=== PATIENT | male | born 1965 | race Caucasian/White ===

== ENCOUNTER → 2020-01-05 13:20 | Outpatient (BNVA) | payer BC, SELFPAY | PROVIDERS: PCP Family Medicine; Visit Provider Student in an Organized Health Care Education/Training Program | DX: Z76.89 Persons encountering health services in other specified circumstances (principal) ==

== ENCOUNTER 2020-05-11 09:00 | Outpatient (REF) | payer BC, SELFPAY ==
[2020-05-11 10:02] LABS: Basophils Percent Auto 0.5 % (0-2); Eosinophils Absolute Auto 0.1 X10*3/uL (0.0-0.4); Eosinophils Percent Auto 2.4 % (0-4); Hematocrit 45.3 % (42-52); Hemoglobin 14.9 g/dl (14.0-18.0); Imm Gran Abs Auto 0.05 X10*3/uL (0.00-0.03); Imm Gran Pct Auto 1.3 % (0.0-0.4); Lymphocytes Absolute Auto 0.7 X10*3/uL (1.2-4.9); Lymphocytes Percent Auto 17.7 % (20-40); MANUAL DIFF FLAG SCAN; Mean Corpuscular HGB Conc 32.9 g/dl (31.0-36.0); Mean Corpuscular Hemoglobin 29.7 pg (27.0-33.0); Mean Corpuscular Volume 90.2 fL (80-98); Mean Platelet Volume 9.6 fL (9.4-12.4); Monocytes Absolute Auto 0.6 X10*3/uL (0.1-1.2); Monocytes Percent Auto 16.7 % (2-11); Neutrophils Absolute Auto 2.3 X10*3/uL (2.0-8.3); Neutrophils Percent Auto 61.4 % (45-73); Platelet Count 219 X10*3/uL (160-400); Red Blood Count 5.02 X10*6/uL (4.60-5.80); Red Cell Distribution Width 15.1 % (11.0-16.0); SCAN SMEAR FLAG 1; White Blood Count 3.8 X10*3/uL (4.8-10.8)
[2020-05-11 10:31] LABS: Alanine Aminotransferase 14 U/L (0-40); Albumin Level 4.1 g/dL (3.5-5.0); Alkaline Phosphatase 80 U/L (39-117); Anion Gap 10 (12-20); Aspartate Amino Transferase 17 U/L (5-37); Bilirubin Total 1.4 mg/dL (0.0-1.0); Blood Urea Nitrogen 20 mg/dL (9-16); C Reactive Protein 0.21 mg/dL (< or = 0.50); Calcium 8.8 mg/dL (8.4-10.2); Carbon Dioxide 30 mmol/L (22-29); Chloride 103 mmol/L (96-108); Estimated Glomerular Filt Rate > 60; Glucose Random 248 mg/dL (60-115); Potassium 4.1 mmol/L (3.3-5.1); Sodium 139 mmol/L (135-145); Total Protein 6.1 g/dL (6.5-8.0)
[2020-05-11 10:52] LABS: Erythrocyte Sedimentation Rate 2 MM/HR (0-15)
[2020-05-11 11:41] LABS: SLIDE REVIEW VERIFIED
== END 2020-05-11 09:01 | disposition home or self-care (01) ==
LOC: HO.LAB 09:00
PROVIDERS: PCP Family Medicine; Visit Provider Student in an Organized Health Care Education/Training Program
DX: L40.50 Arthropathic psoriasis, unspecified (principal)
CPT/HCPCS: 36415; 80053; 85025; 85652; 86140

== ENCOUNTER → 2020-05-24 15:55 | Outpatient (BNVA) | payer BC, SELFPAY | PROVIDERS: PCP Family Medicine; Visit Provider Student in an Organized Health Care Education/Training Program | DX: L40.50 Arthropathic psoriasis, unspecified (principal) ==

== ENCOUNTER 2020-10-21 17:07 | Outpatient (REF) | payer BC, SELFPAY ==
[2020-10-21 17:13] LABS: MANUAL DIFF FLAG NO
[2020-10-21 17:44] LABS: Basophils Percent Auto 0.2 % (0-2); Eosinophils Percent Auto 0.7 % (0-4); Hematocrit 45.1 % (42-52); Hemoglobin 14.9 g/dl (14.0-18.0); Imm Gran Abs Auto 0.01 X10*3/uL (0.00-0.03); Imm Gran Pct Auto 0.2 % (0.0-0.4); Lymphocytes Absolute Auto 0.6 X10*3/uL (1.2-4.9); Lymphocytes Percent Auto 15.3 % (20-40); Mean Corpuscular Hemoglobin 29.9 pg (27.0-33.0); Mean Corpuscular Volume 90.4 fL (80-98); Mean Platelet Volume 9.6 fL (9.4-12.4); Monocytes Absolute Auto 0.7 X10*3/uL (0.1-1.2); Monocytes Percent Auto 17.8 % (2-11); Neutrophils Absolute Auto 2.7 X10*3/uL (2.0-8.3); Neutrophils Percent Auto 65.8 % (45-73); Platelet Count 230 X10*3/uL (160-400); Red Blood Count 4.99 X10*6/uL (4.60-5.80); Red Cell Distribution Width 14.6 % (11.0-16.0); White Blood Count 4.1 X10*3/uL (4.8-10.8)
[2020-10-21 18:01] LABS: Alanine Aminotransferase 18 U/L (0-40); Albumin Level 4.5 g/dL (3.5-5.0); Alkaline Phosphatase 85 U/L (39-117); Anion Gap 18 (12-20); Aspartate Amino Transferase 18 U/L (5-37); Bilirubin Total 1.2 mg/dL (0.0-1.0); Blood Urea Nitrogen 13 mg/dL (9-16); C Reactive Protein 0.38 mg/dL (< or = 0.50); Calcium 9.3 mg/dL (8.4-10.2); Carbon Dioxide 24 mmol/L (22-29); Chloride 105 mmol/L (96-108); Estimated Glomerular Filt Rate > 60; Glucose Random 147 mg/dL (60-115); Potassium 3.9 mmol/L (3.3-5.1); Sodium 143 mmol/L (135-145); Total Protein 6.8 g/dL (6.5-8.0)
[2020-10-21 18:41] LABS: Erythrocyte Sedimentation Rate 5 MM/HR (0-15)
== END 2020-10-21 17:08 | disposition home or self-care (01) ==
LOC: HO.LAB 17:07
PROVIDERS: PCP Family Medicine; Visit Provider Student in an Organized Health Care Education/Training Program
DX: L40.50 Arthropathic psoriasis, unspecified (principal)
CPT/HCPCS: 36415; 80053; 85025; 85652; 86140

== ENCOUNTER → 2020-10-25 14:59 | Outpatient (BNVA) | payer BC, SELFPAY | PROVIDERS: PCP Family Medicine; Visit Provider Student in an Organized Health Care Education/Training Program ==

== ENCOUNTER 2021-02-18 13:36 | Outpatient (REF) | payer BC, SELFPAY ==
[2021-02-18 13:49] LABS: MANUAL DIFF FLAG NO
[2021-02-18 14:38] LABS: Basophils Percent Auto 0.7 % (0-2); Hematocrit 44.7 % (42.0-52.0); Hemoglobin 14.9 g/dl (14.0-18.0); Imm Gran Abs Auto 0.03 X10*3/uL (0.00-0.03); Imm Gran Pct Auto 0.7 % (0.0-0.4); Lymphocytes Absolute Auto 0.8 X10*3/uL (1.2-4.9); Lymphocytes Percent Auto 19.1 % (20-40); Mean Corpuscular HGB Conc 33.3 g/dl (31.0-36.0); Mean Corpuscular Hemoglobin 30.3 pg (27.0-33.0); Mean Corpuscular Volume 90.9 fL (80.0-98.0); Mean Platelet Volume 9.6 fL (9.4-12.4); Monocytes Absolute Auto 0.6 X10*3/uL (0.1-1.2); Monocytes Percent Auto 13.5 % (2-11); Neutrophils Absolute Auto 2.7 x10*3/uL (2.0-8.3); Platelet Count 233 X10*3/uL (160-400); Red Blood Count 4.92 X10*6/uL (4.60-5.80); Red Cell Distribution Width 14.6 % (11.0-16.0); White Blood Count 4.1 X10*3/uL (4.8-10.8)
[2021-02-18 14:59] LABS: Alanine Aminotransferase 19 U/L (0-40); Albumin Level 4.3 g/dL (3.5-5.0); Alkaline Phosphatase 91 U/L (39-117); Anion Gap 12 (12-20); Aspartate Amino Transferase 18 U/L (5-37); Bilirubin Total 1.2 mg/dL (0.0-1.0); Blood Urea Nitrogen 16 mg/dL (9-16); C Reactive Protein 0.19 mg/dL (< or = 0.50); Calcium 8.8 mg/dL (8.4-10.2); Carbon Dioxide 26 mmol/L (22-29); Chloride 106 mmol/L (96-108); Estimated Glomerular Filt Rate > 60; Glucose Random 250 mg/dL (60-115); Potassium 4.1 mmol/L (3.3-5.1); Sodium 140 mmol/L (135-145); Total Protein 6.5 g/dL (6.5-8.0)
[2021-02-18 15:44] LABS: Erythrocyte Sedimentation Rate 2 MM/HR (0-15)
== END 2021-02-18 13:37 | disposition home or self-care (01) ==
LOC: HO.LAB 13:36
PROVIDERS: PCP Family Medicine; Visit Provider Nurse Practitioner Family
DX: L40.50 Arthropathic psoriasis, unspecified (principal)
CPT/HCPCS: 36415; 80053; 85025; 85652; 86140

== ENCOUNTER → 2021-04-11 14:08 | Outpatient (BNVA) | payer BC, SELFPAY | PROVIDERS: PCP Family Medicine; Visit Provider Nurse Practitioner Family ==

== ENCOUNTER 2021-07-25 13:31 | Outpatient (REF) | payer BC, SELFPAY ==
[2021-07-25 13:56] LABS: MANUAL DIFF FLAG NO
[2021-07-25 15:16] LABS: Basophils Percent Auto 0.7 % (0-2); Eosinophils Absolute Auto 0.1 X10*3/uL (0.0-0.4); Hemoglobin 14.9 g/dl (14.0-18.0); Imm Gran Abs Auto 0.04 X10*3/uL (0.00-0.03); Lymphocytes Absolute Auto 0.6 X10*3/uL (1.2-4.9); Lymphocytes Percent Auto 15.5 % (20-40); Mean Corpuscular HGB Conc 33.1 g/dl (31.0-36.0); Mean Corpuscular Hemoglobin 29.8 pg (27.0-33.0); Mean Platelet Volume 9.8 fL (9.4-12.4); Monocytes Absolute Auto 0.6 X10*3/uL (0.1-1.2); Neutrophils Absolute Auto 2.7 x10*3/uL (2.0-8.3); Neutrophils Percent Auto 66.8 % (45-73); Platelet Count 229 X10*3/uL (160-400); Red Cell Distribution Width 14.6 % (11.0-16.0); White Blood Count 4.1 X10*3/uL (4.8-10.8)
[2021-07-25 15:33] LABS: Alanine Aminotransferase 18 U/L (0-40); Albumin Level 4.2 g/dL (3.5-5.0); Alkaline Phosphatase 86 U/L (39-117); Anion Gap 13 (12-20); Aspartate Amino Transferase 20 U/L (5-37); Bilirubin Total 1.3 mg/dL (0.0-1.0); Blood Urea Nitrogen 22 mg/dL (9-16); C Reactive Protein 0.17 mg/dL (< or = 0.50); Calcium 9.4 mg/dL (8.4-10.2); Carbon Dioxide 27 mmol/L (22-29); Chloride 102 mmol/L (96-108); Estimated Glomerular Filt Rate > 60; Glucose Random 205 mg/dL (60-115); Potassium 3.8 mmol/L (3.3-5.1); Sodium 138 mmol/L (135-145); Total Protein 6.4 g/dL (6.5-8.0)
[2021-07-25 15:56] LABS: Erythrocyte Sedimentation Rate 2 MM/HR (0-15)
== END 2021-07-25 13:32 | disposition home or self-care (01) ==
LOC: HO.LAB 13:31
PROVIDERS: PCP Family Medicine; Visit Provider Nurse Practitioner Family
DX: L40.50 Arthropathic psoriasis, unspecified (principal)
CPT/HCPCS: 36415; 80053; 85025; 85652; 86140

== ENCOUNTER 2021-10-25 08:18 | Outpatient (REF) | payer BC, SELFPAY ==
[2021-10-25 08:32] LABS: MANUAL DIFF FLAG NO
[2021-10-25 08:35] LABS: Basophils Percent Auto 0.6 % (0-2); Eosinophils Absolute Auto 0.1 X10*3/uL (0.0-0.4); Eosinophils Percent Auto 1.8 % (0-4); Hematocrit 43.8 % (42.0-52.0); Hemoglobin 14.5 g/dl (14.0-18.0); Imm Gran Abs Auto 0.07 X10*3/uL (0.00-0.03); Imm Gran Pct Auto 1.1 % (0.0-0.4); Lymphocytes Absolute Auto 0.7 X10*3/uL (1.2-4.9); Lymphocytes Percent Auto 11.6 % (20-40); Mean Corpuscular HGB Conc 33.1 g/dl (31.0-36.0); Mean Corpuscular Hemoglobin 29.5 pg (27.0-33.0); Mean Corpuscular Volume 89.2 fL (80.0-98.0); Monocytes Absolute Auto 0.9 X10*3/uL (0.1-1.2); Neutrophils Absolute Auto 4.4 x10*3/uL (2.0-8.3); Neutrophils Percent Auto 70.9 % (45-73); Platelet Count 270 X10*3/uL (160-400); Red Blood Count 4.91 X10*6/uL (4.60-5.80); Red Cell Distribution Width 14.6 % (11.0-16.0); White Blood Count 6.2 X10*3/uL (4.8-10.8)
[2021-10-25 09:08] LABS: Alanine Aminotransferase 11 U/L (0-40); Albumin Level 3.9 g/dL (3.5-5.0); Alkaline Phosphatase 86 U/L (39-117); Anion Gap 15 (12-20); Aspartate Amino Transferase 15 U/L (5-37); Bilirubin Total 0.9 mg/dL (0.0-1.0); Blood Urea Nitrogen 19 mg/dL (9-16); C Reactive Protein 0.27 mg/dL (< or = 0.50); Calcium 8.5 mg/dL (8.4-10.2); Carbon Dioxide 25 mmol/L (22-29); Chloride 104 mmol/L (96-108); Estimated Glomerular Filt Rate > 60; Glucose Random 151 mg/dL (60-115); Potassium 4.3 mmol/L (3.3-5.1); Sodium 140 mmol/L (135-145); Total Protein 6.3 g/dL (6.5-8.0)
[2021-10-25 09:16] LABS: Erythrocyte Sedimentation Rate 9 MM/HR (0-15)
== END 2021-10-25 08:19 | disposition home or self-care (01) ==
LOC: HO.LAB 08:18
PROVIDERS: PCP Family Medicine; Visit Provider Nurse Practitioner Family
DX: L40.50 Arthropathic psoriasis, unspecified (principal)
CPT/HCPCS: 36415; 80053; 85025; 85652; 86140

== ENCOUNTER 2022-01-16 15:15 | Outpatient (REF) | payer BC, SELFPAY ==
[2022-01-16 15:35] LABS: MANUAL DIFF FLAG NO
[2022-01-16 16:00] LABS: Basophils Percent Auto 0.9 % (0-2); Eosinophils Absolute Auto 0.1 X10*3/uL (0.0-0.4); Eosinophils Percent Auto 1.6 % (0-4); Hematocrit 44.9 % (42.0-52.0); Hemoglobin 15.2 g/dl (14.0-18.0); Imm Gran Abs Auto 0.04 X10*3/uL (0.00-0.03); Imm Gran Pct Auto 0.9 % (0.0-0.4); Lymphocytes Absolute Auto 0.9 X10*3/uL (1.2-4.9); Lymphocytes Percent Auto 19.7 % (20-40); Mean Corpuscular HGB Conc 33.9 g/dl (31.0-36.0); Mean Corpuscular Volume 88.7 fL (80.0-98.0); Mean Platelet Volume 9.4 fL (9.4-12.4); Monocytes Absolute Auto 0.7 X10*3/uL (0.1-1.2); Monocytes Percent Auto 16.7 % (2-11); Neutrophils Absolute Auto 2.6 x10*3/uL (2.0-8.3); Neutrophils Percent Auto 60.2 % (45-73); Platelet Count 230 X10*3/uL (160-400); Red Blood Count 5.06 X10*6/uL (4.60-5.80); Red Cell Distribution Width 15.2 % (11.0-16.0); White Blood Count 4.3 X10*3/uL (4.8-10.8)
[2022-01-16 16:25] LABS: Alanine Aminotransferase 16 U/L (0-40); Albumin Level 4.5 g/dL (3.5-5.0); Alkaline Phosphatase 87 U/L (39-117); Anion Gap 16 (12-20); Aspartate Amino Transferase 17 U/L (5-37); Bilirubin Total 1.2 mg/dL (0.0-1.0); Blood Urea Nitrogen 18 mg/dL (9-16); C Reactive Protein 0.22 mg/dL (< or = 0.50); Calcium 9.3 mg/dL (8.4-10.2); Carbon Dioxide 25 mmol/L (22-29); Chloride 103 mmol/L (96-108); Estimated Glomerular Filt Rate > 60; Glucose Random 118 mg/dL (60-115); Sodium 140 mmol/L (135-145); Total Protein 6.8 g/dL (6.5-8.0)
[2022-01-16 18:03] LABS: Erythrocyte Sedimentation Rate 2 MM/HR (0-15)
== END 2022-01-16 15:16 | disposition home or self-care (01) ==
LOC: HO.LAB 15:15
PROVIDERS: PCP Family Medicine; Visit Provider Nurse Practitioner Family
DX: L40.50 Arthropathic psoriasis, unspecified (principal)
CPT/HCPCS: 36415; 80053; 85025; 85652; 86140

== ENCOUNTER → 2022-02-13 14:23 | Outpatient (BNVA) | payer OTHER, SELFPAY | PROVIDERS: PCP Family Medicine; Visit Provider Surgery | DX: L72.3 Sebaceous cyst (principal); L40.50 Arthropathic psoriasis, unspecified; E11.9 Type 2 diabetes mellitus without complications; Z79.899 Other long term (current) drug therapy | CPT/HCPCS: 11401 ==

== ENCOUNTER 2022-04-10 12:36 | Outpatient (REF) | payer OTHER, SELFPAY ==
[2022-04-10 12:45] LABS: MANUAL DIFF FLAG NO
[2022-04-10 12:53] LABS: Basophils Absolute Auto 0.1 X10*3/uL (0.0-0.2); Eosinophils Absolute Auto 0.1 X10*3/uL (0.0-0.4); Imm Gran Abs Auto 0.05 X10*3/uL (0.00-0.03); Lymphocytes Absolute Auto 0.7 X10*3/uL (1.2-4.9); Lymphocytes Percent Auto 13.8 % (20-40); Mean Corpuscular HGB Conc 33.3 g/dl (31.0-36.0); Mean Corpuscular Hemoglobin 29.8 pg (27.0-33.0); Mean Corpuscular Volume 89.3 fL (80.0-98.0); Mean Platelet Volume 9.1 fL (9.4-12.4); Monocytes Absolute Auto 0.7 X10*3/uL (0.1-1.2); Monocytes Percent Auto 13.2 % (2-11); Neutrophils Absolute Auto 3.4 x10*3/uL (2.0-8.3); Platelet Count 250 X10*3/uL (160-400); Red Blood Count 5.04 X10*6/uL (4.60-5.80); Red Cell Distribution Width 14.6 % (11.0-16.0); White Blood Count 4.9 X10*3/uL (4.8-10.8)
[2022-04-10 13:17] LABS: Alanine Aminotransferase 13 U/L (0-40); Aspartate Amino Transferase 14 U/L (5-37); C Reactive Protein 0.25 mg/dL (< or = 0.50); Estimated Glomerular Filt Rate > 60
[2022-04-10 13:30] LABS: Erythrocyte Sedimentation Rate 2 MM/HR (0-15)
== END 2022-04-10 12:37 | disposition home or self-care (01) ==
LOC: HO.LAB 12:36
PROVIDERS: PCP Family Medicine; Visit Provider Nurse Practitioner Family
DX: L40.50 Arthropathic psoriasis, unspecified (principal); Z79.899 Other long term (current) drug therapy
CPT/HCPCS: 36415; 82565; 84450; 84460; 85025; 85652; 86140

== ENCOUNTER 2022-06-19 08:25 | Outpatient (REF) | payer OTHER, SELFPAY ==
[2022-06-19 08:45] LABS: MANUAL DIFF FLAG NO
[2022-06-19 09:09] LABS: Basophils Absolute Auto 0.1 X10*3/uL (0.0-0.2); Basophils Percent Auto 1.5 % (0-2); Eosinophils Absolute Auto 0.1 X10*3/uL (0.0-0.4); Hematocrit 47.6 % (42.0-52.0); Hemoglobin 15.7 g/dl (14.0-18.0); Imm Gran Abs Auto 0.04 X10*3/uL (0.00-0.03); Lymphocytes Absolute Auto 0.6 X10*3/uL (1.2-4.9); Lymphocytes Percent Auto 15.5 % (20-40); Mean Corpuscular Hemoglobin 29.6 pg (27.0-33.0); Mean Corpuscular Volume 89.6 fL (80.0-98.0); Mean Platelet Volume 9.5 fL (9.4-12.4); Monocytes Absolute Auto 0.6 X10*3/uL (0.1-1.2); Monocytes Percent Auto 14.3 % (2-11); Neutrophils Absolute Auto 2.7 x10*3/uL (2.0-8.3); Neutrophils Percent Auto 65.7 % (45-73); Platelet Count 218 X10*3/uL (160-400); Red Blood Count 5.31 X10*6/uL (4.60-5.80); Red Cell Distribution Width 14.7 % (11.0-16.0); White Blood Count 4.1 X10*3/uL (4.8-10.8)
[2022-06-19 09:34] LABS: Alanine Aminotransferase 15 U/L (0-40); Albumin Level 4.1 g/dL (3.5-5.0); Alkaline Phosphatase 87 U/L (39-117); Anion Gap 14 (12-20); Aspartate Amino Transferase 13 U/L (5-37); Bilirubin Total 1.6 mg/dL (0.0-1.0); Blood Urea Nitrogen 20 mg/dL (9-16); C Reactive Protein 0.13 mg/dL (< or = 0.50); Carbon Dioxide 26 mmol/L (22-29); Chloride 104 mmol/L (96-108); Estimated Glomerular Filt Rate > 60; Glucose Random 212 mg/dL (60-115); Potassium 4.3 mmol/L (3.3-5.1); Sodium 140 mmol/L (135-145); Total Protein 6.2 g/dL (6.5-8.0)
[2022-06-19 09:50] LABS: Erythrocyte Sedimentation Rate 2 MM/HR (0-15)
== END 2022-06-19 08:26 | disposition home or self-care (01) ==
LOC: HO.LAB 08:25
PROVIDERS: Visit Provider Nurse Practitioner Family
DX: L40.50 Arthropathic psoriasis, unspecified (principal)
CPT/HCPCS: 36415; 80053; 85025; 85652; 86140

== ENCOUNTER → 2022-06-26 08:58 | Outpatient (BNVA) | payer OTHER, SELFPAY | PROVIDERS: PCP Family Medicine; Visit Provider Nurse Practitioner Family | DX: Z13.89 Encounter for screening for other disorder (principal) ==

== ENCOUNTER 2022-09-18 11:27 | Outpatient (REF) | payer OTHER, SELFPAY ==
[2022-09-18 11:42] LABS: MANUAL DIFF FLAG NO
[2022-09-18 12:15] LABS: Basophils Percent Auto 0.8 % (0-2); Eosinophils Percent Auto 0.6 % (0-4); Hematocrit 45.1 % (42.0-52.0); Hemoglobin 14.8 g/dl (14.0-18.0); Imm Gran Abs Auto 0.05 X10*3/uL (0.00-0.03); Lymphocytes Absolute Auto 0.7 X10*3/uL (1.2-4.9); Lymphocytes Percent Auto 12.9 % (20-40); Mean Corpuscular HGB Conc 32.8 g/dl (31.0-36.0); Mean Corpuscular Hemoglobin 29.5 pg (27.0-33.0); Mean Corpuscular Volume 89.8 fL (80.0-98.0); Mean Platelet Volume 9.4 fL (9.4-12.4); Monocytes Absolute Auto 0.6 X10*3/uL (0.1-1.2); Monocytes Percent Auto 12.5 % (2-11); Neutrophils Absolute Auto 3.7 x10*3/uL (2.0-8.3); Neutrophils Percent Auto 72.2 % (45-73); Platelet Count 197 X10*3/uL (160-400); Red Blood Count 5.02 X10*6/uL (4.60-5.80); Red Cell Distribution Width 14.6 % (11.0-16.0); White Blood Count 5.1 X10*3/uL (4.8-10.8)
[2022-09-18 13:00] LABS: Erythrocyte Sedimentation Rate 2 MM/HR (0-15)
[2022-09-18 13:11] LABS: Alanine Aminotransferase 13 U/L (0-40); Alkaline Phosphatase 92 U/L (39-117); Anion Gap 11 (12-20); Aspartate Amino Transferase 16 U/L (5-37); Bilirubin Total 1.5 mg/dL (0.0-1.0); Blood Urea Nitrogen 15 mg/dL (9-16); C Reactive Protein 0.24 mg/dL (< or = 0.50); Calcium 9.3 mg/dL (8.4-10.2); Carbon Dioxide 26 mmol/L (22-29); Chloride 105 mmol/L (96-108); Estimated Glomerular Filt Rate > 60; Glucose Random 237 mg/dL (60-115); Potassium 3.3 mmol/L (3.3-5.1); Sodium 139 mmol/L (135-145); Total Protein 6.5 g/dL (6.5-8.0)
== END 2022-09-18 11:28 | disposition home or self-care (01) ==
LOC: HO.LAB 11:27
PROVIDERS: PCP Family Medicine; Visit Provider Nurse Practitioner Family
DX: L40.50 Arthropathic psoriasis, unspecified (principal)
CPT/HCPCS: 36415; 80053; 85025; 85652; 86140

== ENCOUNTER 2022-10-16 13:55 | Outpatient (AMB) | payer OTHER, SELFPAY ==
[2022-10-16 13:57] VITALS: BP 122/66; PULSE 67; TEMP 36.6; O2SAT 97; BMI 28.2
--- NOTE | 2022-10-16 13:57 | MHC.OFFVIS ---
Intake Vital Signs 10/16/22 13:57 Height 5 ft 10 in Weight 196 lb 13.965 oz BMI 28.2 BP 122/66 Blood Pressure Location Rt brachial Position Sitting Pulse 67 Pulse Source Pulse Oximeter Temp 97.8 F Temp Source Skin Pulse Oximetry (%) 97 Intake Visit Reasons: psoriatic arthritis/LVM ins inactive Intake Note: Pt seen today for PsA follow up. Inner Tube Inserter Required: No Accompanied by: Self / Same As Patient Allergies No Known Allergies Allergy (Verified 10/16/22 13:59) Medication List - Last Reconciled 10/16/22 by Randy Hunt MD aspirin 81 mg PO DAILY clobetasol 0.05% 1 appl topical BID 2 weeks dapagliflozin propanediol (Farxiga) 10 mg PO QAM dulaglutide (Trulicity) 1.5 mg subcut QWEEK folic acid 1 mg PO DAILY methotrexate sodium 10 mg (4 x 2.5 mg) PO QWEEK pioglitazone-metformin 15-850 mg (Actoplus MET) 1 tab PO BID potassium citrate ER 10 mEq PO TID sildenafil 100 mg PO DAILY simvastatin 20 mg PO BEDTIME tamsulosin 0.4 mg PO BEDTIME HPI HPI Comments History of Present Illness Details 57yoM presents for follow-up of psoriatic arthritis. Last seen by Bessy Webb 06/18 On MTX 4 tabs weekly and folic acid daily. Tolerating medications. Patient states that his psoriasis and psoriatic arthritis is well controlled. Gets intermittent psoriatic patches, He manages symptoms with [id number] topicals with good effect. Patient has a history of vertebral fracture after getting injured on a forklift. He states he was seated and the fork truck slammed on the ground after the load shifted off the fork. He reports a vertebral fracture was found on imaging sometime later and had healed by that point. He states it has been suggested that he start treatment for osteoporosis, but he would like to learn some more information regarding this. He reports he follows with Urology for calcium kidney stones. He states he had 4 episodes of stones 3 which required intervention. Last episode was 15 years ago Denies history of alcohol or smoking. He is not aware of any testosterone deficiency. Previously followed with Endocrine for diabetes, he states he was referred back to his PCP approximately 2 months ago as his blood sugars have been well controlled. He reports osteoporosis was newly discovered on DEXA December 2021. He follows with Urology for kidney stones. [facility] Medical History Diabetes Psoriatic arthropathy Surgical History History of orchiectomy Hx of cystoscopy Family History Father Lung cancer Mother Lung cancer Social History Household Members: Spouse Housing: House Are you a primary pediatric acute care unit nurse to a significant other at home: No Do you presently have visiting nurse or other home services: No 75 years or older and lives alone: No Alcohol intake: never Patient Tobacco Use Status: Never used Tobacco Review of Systems Musc Denies arthralgias, Denies joint swelling and Denies stiffness Skin/Breast Reports rash Physical Exam Vital Signs: Last Vital Signs Temp 97.8 F 10/16/22 13:57 Pulse 67 10/16/22 13:57 BP 122/66 10/16/22 13:57 Pulse Ox 97 10/16/22 13:57 BMI result Body Mass Index 28.2 Const General: cooperative, healthy appearing and comfortable Nutritional Appearance: overweight Orientation/consciousness: patient oriented x3 Limitations: no limitations HEENT Head: Yes normocephalic and Yes atraumatic Mouth: moist mucous membranes Resp Effort & Inspection: normal respiratory effort and able to speak in complete sentences Cardio Rate: regular rate Rhythm: regular rhythm Skin General skin exam: no rashes or lesions noted Neuro General: patient oriented x3 Extrem Other: No active synovitis Assessment & Plan Assessment & Plan (1) Psoriatic arthritis: Comment: Methotrexate: 2011-present Code(s): L40.50 - Arthropathic psoriasis, unspecified Plan: 57-year-old male with psoriatic arthritis returns for follow-up. His psoriatic arthritis has been well controlled for years with current management Continue methotrexate 10 mg once weekly and folic acid daily. Labs before next visit in 6 months (2) Osteoporosis with fracture: Comment: Prior fracture history vertebral fracture. DEXA report [facility] 01/02/2022 AP spine T-score -2.8 osteoporosis Femoral neck left T-score -3.0 osteoporosis Total hip left T-score -2.1 osteopenia Code(s): M80.80XA - Other osteoporosis with current pathological fracture, unspecified site, initial encounter for fracture Plan: Given osteoporosis a in a male, history of calcium kidney stones, I referred patient to undergo allergy for evaluation of a potential underlying cause for his osteoporosis (3) watermaster methotrexate user: Code(s): Z79.899 - Other care home (current) drug therapy Plan: Patient has been on methotrexate for many years, well tolerated without side effects. Labs before next visit Patient is referred to Hematology for evaluation of his chronic lymphopenia. Plan I spent 26 minutes reviewing patient's chart, evaluating patient, ordering diagnostic workup, counseling patient and documenting in the chart Orders: Orders Complete Blood Count Auto Diff 6 Months L40.50 - Arthropathic psoriasis, unspecified Comprehensive Met. Panel 6 Months L40.50 - Arthropathic psoriasis, unspecified C Reactive Protein 6 Months L40.50 - Arthropathic psoriasis, unspecified Erythrocyte Sedimentation Rate 6 Months L40.50 - Arthropathic psoriasis, unspecified Referrals Endocrinology Referral M80.80XA - Other osteoporosis with current pathological fracture, unspecified site, initial encounter for fracture Medications: Refilled methotrexate sodium 10 mg (4 x 2.5 mg) PO QWEEK 16 tabs 0RF L40.50 - Arthropathic psoriasis, unspecified methotrexate sodium 10 mg (4 x 2.5 mg) PO QWEEK 48 tabs 1RF L40.50 - Arthropathic psoriasis, unspecified folic acid 1 mg PO DAILY 90 tabs 1RF L40.50 - Arthropathic psoriasis, unspecified, Z79.899 - Other watermaster (current) drug therapy Coding Level of Care Code Est Pt Level 4 (02641) Diagnoses Psoriatic arthritis L40.50 Osteoporosis with fracture M80.80XA watermaster methotrexate user Z79.899
== END 2022-10-16 14:29 | disposition home or self-care (01) ==
PROVIDERS: PCP Family Medicine; Visit Provider Student in an Organized Health Care Education/Training Program
DX: L40.50 Arthropathic psoriasis, unspecified (principal); M80.80XA Other osteoporosis with current pathological fracture, unspecified site, initial encounter for fracture; Z79.899 Other long term (current) drug therapy
CPT/HCPCS: 99214

== ENCOUNTER → 2022-10-16 13:55 | Outpatient (BNVA) | payer OTHER, SELFPAY | PROVIDERS: PCP Family Medicine; Visit Provider Student in an Organized Health Care Education/Training Program ==

== ENCOUNTER 2023-04-27 17:16 | Outpatient (REF) | payer OTHER, SELFPAY ==
[2023-04-27 17:26] LABS: MANUAL DIFF FLAG NO
[2023-04-27 17:55] LABS: Basophils Percent Auto 0.7 % (0-2); Eosinophils Percent Auto 0.7 % (0-4); Hematocrit 45.9 % (42.0-52.0); Hemoglobin 15.6 g/dl (14.0-18.0); Imm Gran Abs Auto 0.09 X10*3/uL (0.00-0.03); Imm Gran Pct Auto 1.5 % (0.0-0.4); Lymphocytes Absolute Auto 0.8 X10*3/uL (1.2-4.9); Lymphocytes Percent Auto 12.4 % (20-40); Mean Corpuscular Hemoglobin 30.4 pg (27.0-33.0); Mean Corpuscular Volume 89.3 fL (80.0-98.0); Mean Platelet Volume 9.3 fL (9.4-12.4); Monocytes Absolute Auto 0.9 X10*3/uL (0.1-1.2); Neutrophils Absolute Auto 4.2 x10*3/uL (2.0-8.3); Neutrophils Percent Auto 69.7 % (45-73); Platelet Count 304 X10*3/uL (160-400); Red Blood Count 5.14 X10*6/uL (4.60-5.80); Red Cell Distribution Width 14.7 % (11.0-16.0); White Blood Count 6.1 X10*3/uL (4.8-10.8)
[2023-04-27 18:01] LABS: Alanine Aminotransferase 16 U/L (0-40); Albumin Level 4.4 g/dL (3.5-5.0); Alkaline Phosphatase 91 U/L (39-117); Anion Gap 11 (12-20); Aspartate Amino Transferase 17 U/L (5-37); Blood Urea Nitrogen 14 mg/dL (9-16); C Reactive Protein 0.44 mg/dL (< or = 0.50); Calcium 9.4 mg/dL (8.4-10.2); Carbon Dioxide 28 mmol/L (22-29); Chloride 104 mmol/L (96-108); Estimated Glomerular Filt Rate > 60; Glucose Random 167 mg/dL (60-115); Potassium 3.7 mmol/L (3.3-5.1); Sodium 139 mmol/L (135-145); Total Protein 7.1 g/dL (6.5-8.0)
[2023-04-27 18:39] LABS: Erythrocyte Sedimentation Rate 5 MM/HR (0-15)
== END 2023-04-27 17:17 | disposition home or self-care (01) ==
LOC: HO.LAB 17:16
PROVIDERS: Visit Provider Student in an Organized Health Care Education/Training Program
DX: L40.50 Arthropathic psoriasis, unspecified (principal)
CPT/HCPCS: 36415; 80053; 85025; 85652; 86140

== ENCOUNTER 2023-05-31 15:30 | Outpatient (AMB) | payer OTHER, SELFPAY ==
--- NOTE | 2023-05-31 15:34 | A.OFFVIS_ITS ---
Intake Vital Signs 05/31/23 15:35 Height 5 ft 10 in Weight 196 lb 3.382 oz BMI 28.2 BP 116/72 Blood Pressure Location Rt brachial Position Sitting Pulse 84 Pulse Source Pulse Oximeter Pulse Oximetry (%) 96 Oxygen Delivery Method Room Air Intake Visit Reasons: PsA Intake Note: Patient last seen 10/16/22 presents today for follow up and test results. Needs refill on MTX 4 tabs weekly and folic acid. Beck Tender Required: No Accompanied by: Self / Same As Patient Allergies No Known Allergies Allergy (Verified 05/31/23 15:40) Medication List - Last Reconciled 05/31/23 by Randy Hunt MD aspirin 81 mg PO DAILY clobetasol 0.05% 1 appl topical BID 2 weeks dapagliflozin propanediol (Farxiga) 10 mg PO QAM dulaglutide (Trulicity) 1.5 mg subcut QWEEK folic acid 1 mg PO DAILY methotrexate sodium 10 mg (4 x 2.5 mg) PO QWEEK pioglitazone-metformin 15-850 mg (Actoplus MET) 1 tab PO BID potassium citrate ER 10 mEq PO TID sildenafil 100 mg PO DAILY simvastatin 20 mg PO BEDTIME tamsulosin 0.4 mg PO BEDTIME HPI HPI Comments History of Present Illness Details 57yoM presents for follow-up of psoriatic arthritis. Last seen 09/2022 last seen 09/2022 On MTX 4 tabs weekly and folic acid daily. Tolerating medications. Patient states that his psoriasis and psoriatic arthritis is well controlled. Gets intermittent psoriatic patches, He manages symptoms with [id number]-[id number] topicals with good effect. He was evaluated by flame cutting machine operator helper Dr. Boss in [facility] for his osteoporosis with fracture and was told that he has high calcium in the urine and was referred to a title inspector [facility] Medical History Diabetes Psoriatic arthropathy Surgical History Hx of cystoscopy History of orchiectomy Family History Father Lung cancer Mother Lung cancer Social History Household Members: Spouse Housing: House Are you a primary healthcare management to a significant other at home: No Do you presently have visiting nurse or other home services: No 75 years or older and lives alone: No Alcohol intake: never Patient Tobacco Use Status: Never used Tobacco Review of Systems Musc Denies arthralgias, Denies joint swelling and Denies stiffness Skin/Breast Reports rash Physical Exam Vital Signs: BMI result Body Mass Index 28.2 Const General: cooperative, healthy appearing and comfortable Nutritional Appearance: overweight Orientation/consciousness: patient oriented x3 Limitations: no limitations HEENT Head: Yes normocephalic and Yes atraumatic Mouth: moist mucous membranes Resp Effort & Inspection: normal respiratory effort and able to speak in complete sentences Cardio Rate: regular rate Rhythm: regular rhythm Skin General skin exam: no rashes or lesions noted Neuro General: patient oriented x3 Extrem Other: No active synovitis Right shoulder pain with full abduction Bilateral shoulder crepitus Results Reviewed Results Reviewed: Laboratory Tests Laboratory Tests Prior fracture history of previous vertebral fracture. DEXA report [facility] 01/02/2022 AP spine T-score -2.8 osteoporosis Femoral neck left T-score -3.0 osteoporosis Total hip left T-score -2.1 osteopenia Assessment & Plan Assessment & Plan (1) Psoriatic arthritis: Comment: Methotrexate: 2012-present effective Code(s): L40.50 - Arthropathic psoriasis, unspecified Plan: 57-year-old male with psoriatic arthritis returns for follow-up. His psoriatic arthritis has been well controlled for years with current management. Has been on methotrexate 10 mg weekly for at least 2 years Reduce methotrexate to 7.5 mg weekly. Continue with folic acid 1 mg daily Labs before next visit in 6 months (2) Osteoporosis with fracture: Comment: Prior fracture history vertebral fracture. DEXA report [facility] 01/02/2022 AP spine T-score -2.8 osteoporosis Femoral neck left T-score -3.0 osteoporosis Total hip left T-score -2.1 osteopenia Code(s): M80.80XA - Other osteoporosis with current pathological fracture, unspecified site, initial encounter for fracture Qualifiers: Site of pathological fracture: vertebra Encounter type: subsequent encounter Fracture healing: with routine healing Osteoporosis type: other Qualified Code(s): M80.88XD - Other osteoporosis with current pathological fracture, vertebra(e), subsequent encounter for fracture with routine healing Plan: Patient was evaluated by flame cutting machine operator helper and was told that he has hypercalciuria and was referred to Nephrology (3) prison methotrexate user: Code(s): Z79.899 - Other [place] [facility] (current[facility] drug therapy Plan: Patient has been on methotrexate for many years, well tolerated without side effects. Labs before next visit Plan I spent 26 minutes reviewing patient's chart, evaluating patient, ordering d iagnostic workup, counseling patient and documenting in the chart Orders: Orders Complete Blood Count Auto Diff 6 Months L40.50 - Arthropathic psoriasis, unspecified, Z79.899 - Other tank terminal gauger (current) drug therapy Comprehensive Met. Panel 6 Months L40.50 - Arthropathic psoriasis, unspecified, Z79.899 - Other tank terminal gauger (current) drug therapy C Reactive Protein 6 Months L40.50 - Arthropathic psoriasis, unspecified, Z79.899 - Other tank terminal gauger (current) drug therapy Erythrocyte Sedimentation Rate 6 Months L40.50 - Arthropathic psoriasis, unspecified, Z79.899 - Other tank terminal gauger (current) drug therapy Medications: Changed From methotrexate sodium 10 mg (4 x 2.5 mg) PO QWEEK 16 tabs 0RF L40.50 - A rthropathic psoriasis, unspecified To methotrexate sodium 7.5 mg (3 x 2.5 mg) PO QWEEK 36 tabs 1RF L40.50 - Arthropathic psoriasis, unspecified Refilled folic acid 1 mg PO DAILY 90 tabs 1RF L40.50 - Arthropathic psoriasis, unspecified, Z79.899 - [place] [facility] (current[facility] drug therapy Coding Level of Care Code Est Pt Level 4 (52146) Diagnoses Psoriatic arthritis L40.50 Pathological fracture of vertebra due to other osteoporosis with routine healing, subsequent encounter M80.88XD Site of pathological fracture: vertebra Encounter type: subsequent encounter Fracture healing: with routine healing Osteoporosis type: other prison methotrexate user Z79.899
[2023-05-31 15:35] VITALS: BP 116/72; PULSE 84; O2SAT 96; BMI 28.2
== END 2023-05-31 15:58 | disposition home or self-care (01) ==
PROVIDERS: PCP Family Medicine; Visit Provider Student in an Organized Health Care Education/Training Program
DX: L40.50 Arthropathic psoriasis, unspecified (principal); M80.88XD Other osteoporosis with current pathological fracture, vertebra(e), subsequent encounter for fracture with routine healing; Z79.899 Other long term (current) drug therapy
CPT/HCPCS: 99214

== ENCOUNTER → 2023-05-31 15:30 | Outpatient (BNVA) | payer OTHER, SELFPAY | PROVIDERS: PCP Family Medicine; Visit Provider Student in an Organized Health Care Education/Training Program ==

== ENCOUNTER 2023-11-16 16:49 | Outpatient (REF) | payer OTHER, SELFPAY ==
[2023-11-16 17:15] LABS: MANUAL DIFF FLAG NO
[2023-11-16 17:29] LABS: Basophils Percent Auto 0.7 % (0-2); Eosinophils Percent Auto 0.9 % (0-4); Hematocrit 44.7 % (42.0-52.0); Hemoglobin 15.4 g/dl (14.0-18.0); Imm Gran Abs Auto 0.03 X10*3/uL (0.00-0.03); Imm Gran Pct Auto 0.7 % (0.0-0.4); Lymphocytes Absolute Auto 0.8 X10*3/uL (1.2-4.9); Lymphocytes Percent Auto 17.6 % (20-40); Mean Corpuscular HGB Conc 34.5 g/dl (31.0-36.0); Mean Corpuscular Volume 89.9 fL (80.0-98.0); Mean Platelet Volume 9.3 fL (9.4-12.4); Monocytes Absolute Auto 0.7 X10*3/uL (0.1-1.2); Monocytes Percent Auto 15.8 % (2-11); Neutrophils Absolute Auto 2.9 x10*3/uL (2.0-8.3); Neutrophils Percent Auto 64.3 % (45-73); Platelet Count 239 X10*3/uL (160-400); Red Blood Count 4.97 X10*6/uL (4.60-5.80); Red Cell Distribution Width 14.6 % (11.0-16.0); White Blood Count 4.4 X10*3/uL (4.8-10.8)
[2023-11-16 17:44] LABS: Alanine Aminotransferase 17 U/L (0-40); Albumin Level 4.5 g/dL (3.5-5.0); Alkaline Phosphatase 78 U/L (39-117); Anion Gap 14 (12-20); Aspartate Amino Transferase 18 U/L (5-37); Bilirubin Total 1.4 mg/dL (0.0-1.0); Blood Urea Nitrogen 14 mg/dL (9-16); C Reactive Protein 0.15 mg/dL (< or = 0.50); Carbon Dioxide 29 mmol/L (22-29); Chloride 101 mmol/L (96-108); Estimated Glomerular Filt Rate > 60; Glucose Random 181 mg/dL (60-115); Potassium 3.6 mmol/L (3.3-5.1); Sodium 140 mmol/L (135-145); Total Protein 7.1 g/dL (6.5-8.0)
[2023-11-16 18:25] LABS: Erythrocyte Sedimentation Rate 2 MM/HR (0-15)
== END 2023-11-16 16:50 | disposition home or self-care (01) ==
LOC: HO.LAB 16:49
PROVIDERS: PCP Nurse Practitioner Family; Visit Provider Student in an Organized Health Care Education/Training Program
DX: L40.50 Arthropathic psoriasis, unspecified (principal); Z79.899 Other long term (current) drug therapy
CPT/HCPCS: 36415; 80053; 85025; 85652; 86140

== ENCOUNTER 2023-12-07 16:02 | Outpatient (AMB) | payer OTHER, SELFPAY ==
[2023-12-07 16:06] VITALS: BP 110/66; PULSE 81; O2SAT 98; BMI 25.8
--- NOTE | 2023-12-07 16:06 | MHC.OFFVIS ---
Vital Signs 12/07/23 16:06 Height 5 ft 11 in Weight 185 lb 3.013 oz BMI 25.8 BP 110/66 Blood Pressure Location Lt brachial Position Sitting Pulse 81 Pulse Source Pulse Oximeter Pulse Oximetry (%) 98 Oxygen Delivery Method Room Air Intake Visit Reasons: PsA Intake Note: Patient presents for follow up on PSA, and lab review. He was last seen here on 05/31/2023. Allergies No Known Allergies Allergy (Verified 12/07/23 16:09) Medication List - Last Reconciled 12/07/23 by Randy Hunt MD aspirin 81 mg PO DAILY clobetasol 0.05% 1 appl topical BID 2 weeks dapagliflozin propanediol (Farxiga) 10 mg PO QAM dulaglutide (Trulicity) 1.5 mg subcut QWEEK fluoxetine 10 mg PO DAILY folic acid 1 mg PO DAILY hydrochlorothiazide 12.5 mg PO DAILY methotrexate sodium 7.5 mg (3 x 2.5 mg) PO QWEEK pioglitazone-metformin 15-850 mg (Actoplus MET) 1 tab PO BID potassium citrate ER 10 mEq PO TID sildenafil 100 mg PO DAILY simvastatin 20 mg PO BEDTIME tamsulosin 0.4 mg PO BEDTIME HPI Comments Details: 58yoM presents for follow-up of psoriatic arthritis. Last seen 06/19 On MTX 3 tabs weekly and folic acid daily. Tolerating medications. Patient states that his psoriasis and psoriatic arthritis is well controlled. Lowering the methotrexate dose did not make much of a difference. Gets intermittent psoriatic patches, He manages symptoms with clobetasol cream Recently evaluated by a patient ombudsperson and started on hydrochlorothiazide PFSH Medical History Diabetes Psoriatic arthropathy Surgical History Hx of cystoscopy History of orchiectomy Family History Father Lung cancer Mother Lung cancer Social History Household Members: Spouse Housing: House Are you a primary care transport nurse to a significant other at home: No Do you presently have visiting nurse or other home services: No 75 years or older and lives alone: No Alcohol intake: never Patient Tobacco Use Status: Never used Tobacco Review of Systems [facility] Denies arthralgias, Denies joint swelling and Denies stiffness Skin/Breast Reports rash Physical Exam Vital Signs: Last Vital Signs Pulse 81 12/07/23 16:06 BP 110/66 12/07/23 16:06 Pulse Ox 98 12/07/23 16:06 Oxygen Delivery Method Room Air 12/07/23 16:06 BMI result Body Mass Index 25.8 Const General: cooperative, healthy appearing and comfortable Nutritional Appearance: overweight Orientation/consciousness: patient oriented x3 Limitations: no limitations HEENT Head: Yes normocephalic and Yes atraumatic Mouth: moist mucous membranes Resp Effort & Inspection: normal respiratory effort and able to speak in complete sentences Cardio Rate: regular rate Rhythm: regular rhythm Skin Other: Tiny psoriasis rash on his left calf posteriorly Neuro General: patient oriented x3 Extrem Other: No active synovitis Assessment & Plan Assessment & Plan (1) Psoriatic arthritis: Comment: Methotrexate: 2012-present effective Code(s): L40.50 - Arthropathic psoriasis, unspecified Category: Medical Plan: 58-year-old male with psoriatic arthritis returns for follow-up. His psoriatic arthritis has been well controlled for years I have lowered methotrexate to 7.5 mg weekly last visit 6 months ago without worsening symptoms Continue methotrexate to 7.5 mg weekly. Continue with folic acid 1 mg daily Labs before next visit in 6 months (2) Osteoporosis with fracture: Comment: Prior fracture history vertebral fracture. DEXA report [facility] 01/02/2022 AP spine T-score -2.8 osteoporosis Femoral neck left T-score -3.0 osteoporosis Total hip left T-score -2.1 osteopenia Code(s): M80.80XA - Other osteoporosis with current pathological fracture, unspecified site, initial encounter for fracture Category: Medical Qualifiers: Osteoporosis type: other Site of pathological fracture: vertebra Encounter type: subsequent encounter Fracture healing: with routine healing Qualified Code(s): M80.88XD - Other osteoporosis with current pathological fracture, vertebra(e), subsequent encounter for fracture with routine healing Plan: Patient was evaluated by canvass manager and was told that he has hypercalciuria and was referred to Nephrology and started on hydrochlorothiazide (3) intermediate card tender methotrexate user: Code(s): Z79.899 - Other intermediate frame tender (current) drug therapy Category: Medical Plan: Patient has been on methotrexate for many years, well tolerated without side effects. Labs before next visit Plan I spent 26 minutes reviewing patient's chart, evaluating patient, ordering diagnostic workup, counseling patient and documenting in the chart Orders: Orders Erythrocyte Sedimentation Rate 6 Months L40.50 - Arthropathic psoriasis, unspecified, Z79.899 - Other intermediate frame tender (current) drug therapy Complete Blood Count Auto Diff 6 Months L40.50 - Arthropathic psoriasis, unspecified, Z79.899 - Other jail (current) drug therapy Comprehensive Met. Panel 6 Months L40.50 - Arthropathic psoriasis, unspecified, Z79.899 - Other intermediate frame tender (current) drug therapy C Reactive Protein 6 Months L40.50 - Arthropathic psoriasis, unspecified, Z79.899 - Other intermediate frame tender (current) drug therapy Medications: Refilled clobetasol 0.05% Apply cream to skin twice a day for up to 2 weeks. Do not apply to face, groin or axillae 1 appl topical BID 30 grams 1RF 2 weeks Coding Level of Care Code Est Pt Level 4 (19946) Diagnoses Psoriatic arthritis L40.50 Pathological fracture of vertebra due to other osteoporosis with routine healing, subsequent encounter M80.88XD Osteoporosis type: other Site of pathological fracture: vertebra Encounter type: subsequent encounter Fracture healing: with routine healing half-way methotrexate user Z79.899
== END 2023-12-07 16:32 | disposition home or self-care (01) ==
PROVIDERS: PCP Nurse Practitioner Family; Visit Provider Student in an Organized Health Care Education/Training Program
DX: L40.50 Arthropathic psoriasis, unspecified (principal); M80.88XD Other osteoporosis with current pathological fracture, vertebra(e), subsequent encounter for fracture with routine healing; Z79.899 Other long term (current) drug therapy
CPT/HCPCS: 99214

== ENCOUNTER → 2023-12-07 16:02 | Outpatient (BNVA) | payer OTHER, SELFPAY | PROVIDERS: PCP Nurse Practitioner Family; Visit Provider Student in an Organized Health Care Education/Training Program ==

== ENCOUNTER 2024-10-02 16:39 | Outpatient (REF) | payer BC, SELFPAY ==
[2024-10-02 16:49] LABS: MANUAL DIFF FLAG NO
[2024-10-02 17:23] LABS: Hematocrit 43.6 % (42.0-52.0); Hemoglobin 14.7 g/dl (14.0-18.0); Imm Gran Abs Auto 0.05 X10*3/uL (0.00-0.03); Imm Gran Pct Auto 1.1 % (0.0-0.4); Lymphocytes Absolute Auto 0.7 X10*3/uL (1.2-4.9); Mean Corpuscular HGB Conc 33.7 g/dl (31.0-36.0); Mean Corpuscular Hemoglobin 30.0 pg (27.0-33.0); Mean Corpuscular Volume 89.0 fL (80.0-98.0); NRBC Abs Auto 0.000 X10*3/uL (0.0-0.012); NRBC Pct Auto 0.0 /100WBC (0.0-0.2); Platelet Count 289 X10*3/uL (160-400); Red Blood Count 4.90 X10*6/uL (4.60-5.80); White Blood Count 4.4 X10*3/uL (4.8-10.8)
[2024-10-02 17:53] LABS: Alanine Aminotransferase 37 U/L (0-40); Albumin Level 4.5 g/dL (3.5-5.0); Alkaline Phosphatase 211 U/L (39-117); Anion Gap 15 (12-20); Aspartate Amino Transferase 27 U/L (5-37); Blood Urea Nitrogen 16 mg/dL (9-16); Calcium 9.2 mg/dL (8.4-10.2); Carbon Dioxide 27 mmol/L (22-29); Chloride 99 mmol/L (96-108); Estimated Glomerular Filt Rate > 60; Potassium 3.5 mmol/L (3.3-5.1); Sodium 137 mmol/L (135-145); Total Protein 7.2 g/dL (6.5-8.0)
== END 2024-10-02 16:40 | disposition home or self-care (01) ==
LOC: HO.LAB 16:39
PROVIDERS: PCP Nurse Practitioner Family; Visit Provider Student in an Organized Health Care Education/Training Program
DX: L40.50 Arthropathic psoriasis, unspecified (principal); Z79.899 Other long term (current) drug therapy
CPT/HCPCS: 36415; 80053; 85025; 85652; 86140

== ENCOUNTER 2024-10-13 12:17 | Outpatient (AMB) | payer BC, SELFPAY ==
--- OUTSIDE RECORDS SUMMARY | 2024-10-13 12:20 | XMS_ITS | Encounter Summary ---
Author Organization [facility] Address [address] [place] [address] Phone Care Team Providers Care Petroleum Engineering Teacher Name Role Phone Ghada Mac Primary Care Provider [phone] Encounter Details Date Type Department Care Team (Late st Contact Info) Description 06/01/2023 Documentation Only [facility] [address] [place] [address] [place], [place] [address] [place] [address] Social History Tobacco Use Types Packs/Day Years Used Date Smoking Tobacco: Never Assessed Sex and Gender Information Value Date Recorded Sex Assigned at Not on file Legal Sex Male 1:36 PM EST Gender Identity Not on file Sexual Orientation Not on file documented as of this encounter Plan of Treatment Upcoming Encounters Date Type Department Care Team (Late st Contact Info) Description 09/24/2025 4:15 PM EDT Office Visit [facility] [address] Sin EST[address] [place] [phone] Dexter Hartman MD [address] [place] [address] [place] [address] documented as of this encounter Visit Diagnoses Not on filedocumented in this encounter Care Teams Petroleum Engineering Teacher Relationship Specialty Start Date End Date Ghada Mac [address] [place] [address] PCP - General 06/01/23 documented as of this encounter
--- OUTSIDE RECORDS SUMMARY | 2024-10-13 12:20 | XMS_ITS | Clinical Summary ---
Author Organization [facility] Address [address] [place] [id number] Phone Care Team Providers Care Mortgage Consultant Name Role Phone Liz Holland MD Primary Care Provider Allergies No known active allergies Medications aspirin 81 MG EC tablet Take 81 mg by mouth daily. Active pioglitazone 15 MG Tab 15 mg, metFORMIN 850 MG Tab 850 mg Take by mouth daily. Active POTASSIUM CITRATE ORAL Take by mouth. Active simvastatin (ZOCOR) 20 MG tablet Take 20 mg by mouth nightly at bedtime. Active tiZANidine (ZANAFLEX) 4 MG capsule Take 1 capsule (4 mg total) by mouth 3 (three) times a day. 20 capsule 0 Active dulaglutide (TRULICITY) 1.5 mg/0.5 mL subcutaneous injection Inject 1.5 mg under the skin every 7 days. Active Active Problems Problem Noted Date Diagnosed Date Compression fracture of L2 vertebra 12/13/2021 Type 2 diabetes mellitus 12/13/2021 Arthritis 07/27/2017 History of cholelithiasis 07/27/2017 Hypercholesterolemia 07/27/2017 Type 2 diabetes mellitus without complications 0 07/27/2017 Social History Tobacco Use Types Packs/Day Years Used Date Smoking Tobacco: Never Smokeless Tobacco: Never Tobacco Cessation:Counseling Given: No Alcohol Use Standard Drinks/Week Comments Not Currently 0 (1 standard drink = 0.6 oz pur e alcohol) Education Answer Date Recorded Are you interested in more education? Not on chapis e 07/24/2022 Are you concerned about learning? Not on file 07/24/2022 No 07/24/2022 No 07/24/2022 Digital Access Answer Date Recorded No 08/22/2022 No 08/22/2022 No 08/22/2022 Reliable internet access at home? Not on file 08/22/2022 Device with a working camera? Not on file Sex and Gender Information Value Date Recorded Sex Assigned at Not on file Legal Sex Male 6:06 PM EDT Gender Identity Not on file Sexual Orientation Not on file Last Filed Vital Signs Vital Sign Reading Time Taken Comments Blood Pressure 126/81 12/14/2021 9:44 AM EDT Pulse 82 12/14/2021 9:44 AM EDT Temperature 36.4 C (97.5 F) 12/14/2021 9:44 AM EDT Respiratory Rate 18 12/14/2021 9:44 AM EDT Oxygen Saturation 98% 12/14/2021 9:44 AM EDT Inhaled Oxygen Concentration - - Weight 86.2 kg (190 lb) 12/13/2021 11:24 AM EDT Height 180.3 cm (5' 11 ) 12/13/2021 11:24 AM EDT Body Mass Index 26.5 12/13/2021 11:24 AM EDT Plan of Treatment Health Maintenance Due Date Last Done Comments CREATININE LEVEL 1963 HEMOGLOBIN A1C 1963 POTASSIUM LEVEL 1965 DEPRESSION SCREENING 1975 HEPATITIS C SCREENING 09/10/1981 HIV ONE-TIME SCREENING (18-6 5 YEARS) 09/10/1981 COLOGUARD 09/10/2008 COLONOSCOPY 09/10/2008 COLORECTAL CANCER SCREENING 09/10/2008 FIT TEST 09/10/2008 FOBT 09/10/2008 SIGMOIDOSCOPY 09/10/2008 VIRTUAL COLONOSCOPY 09/10/2008 PNEUMOCOCCAL VACCINES (50+ years) (2 of 2 - PCV) 12/18/2018 12/18/2017, 01/28/2004 ZOSTER VACCINES (2 of 2) 02/03/2020 12/09/2019 DIABETIC EYE EXAM 12/13/2021 URINE MICROALBUMIN/CREATININ E RATIO 12/13/2021 BLOOD PRESSURE 06/13/2022 12/14/2021 COVID-19 VACCINE (1 - 2023-2 5 season) 2023 Adult Td,Tdap Booster 10/10/2029 10/11/2019 , 02/21/2018, 07/28/2012 RSV VACCINE (1 - 1-dose 75+ series) 09/10/2038 SMOKING STATUS SCREENING (On ce After 26 Yrs) Completed 12/14/2021 HEPATITIS A VACCINES Aged Out No long er eligible based on patient's age to complete this topic HIB VACCINES Aged Out No longer eligi ble based on patient's age to complete this topic MENINGOCOCCAL VACCINES (ACWY) Aged Out No longer eligible based on patient's age to complete this topic MENINGOCOCCAL VACCINES (B) Aged Out N o longer eligible based on patient's age to complete this topic Medical Devices Not on file Insurance [facility] [place] [employer] POS [employer] [employer] POS [place] [employer] POS [place] [employer] POS [place] [employer] POS [facility] HMO POS [place] POS Care Teams Mortgage Consultant Relationship Specialty Start Date End Date Liz Holland MD [address] [place] [address] PCP - General Family Medicine 10/02/19 Additional Source Comments The information contained in this document represents components of the legal health record. It is not the complete legal health record.[facility]
[2024-10-13 12:32] VITALS: BP 110/62; PULSE 83; O2SAT 97; BMI 23.6
--- NOTE | 2024-10-13 12:32 | A.OFFVIS_ITS ---
Vital Signs 10/13/24 12:32 Height 5 ft 11 in Weight 169 lb 8.568 oz BMI 23.6 BP 110/62 Blood Pressure Location Lt brachial Position Sitting Pulse 83 Pulse Source Pulse Oximeter Pulse Oximetry (%) 97 Oxygen Delivery Method Room Air Intake Visit Reasons: PsA Intake Note: Patient last seen by Doctor Randy Hunt on 12/07/23. Presents today for PsA follow up and test results. Allergies No Known Allergies Allergy (Verified 10/13/24 12:34) HPI Comments Details: Patient is a 59-year-old male with diabetes, hypertension, hyperlipidemia complicated by coronary artery disease, BPH and psoriatic arthritis here today for follow up Interval History: Patient last seen 12/07/[address] Hunt. - On methotrexate 3 tablets weekly and folic acid for PsA - Doing well - Intermittent PsO patches that responds to clobetasol cream Today, - doing well - no PsO - No active PsA disease Rheumatologic History: PsA/PsO Methotrexate: 2011-present effective Osteoporosis Prior fracture history vertebral fracture. DEXA report [facility] 01/02/2022 AP spine T-score -2.8 osteoporosis Femoral neck left T-score -3.0 osteoporosis Total hip left T-score -2.1 osteopenia Current Rheumatology Medication(s): Methotrexate 7.5mg weekly Folic acid 1mg PFSH Medical History Diabetes Psoriatic arthropathy Surgical History Hx of cystoscopy History of orchiectomy Family History Father Lung cancer Mother Lung cancer Social History Household Members: Spouse Housing: House Are you a primary caregiver assisted living to a significant other at home: No Do you presently have visiting nurse or other home services: No 75 years or older and lives alone: No Alcohol intake: never Patient Tobacco Use Status: Never used Tobacco Review of Systems Const Details: Review of Systems Constitutional: Denies fever, chills, weight loss ENT: Denies vision changes, eye pain or eye redness, dental caries, dry mouth GI: Denies nausea, vomiting, diarrhea, abdominal pain, change in BM Pulm: Denies SOB, LYNCH, hemoptysis, wheezing Cards: Denies chest pain, palpitations Skin: Denies Raynaud's, rash, nail changes, photosensitivity, [employer]ER: Denies headaches, weakness, paresthesias, recurrent falls MSK: as per HPI All other systems reviewed and are unremarkable except noted above Physical Exam Exam Exam: Vital signs reviewed Physical Examination CONSTITUITIONAL Patient alert and cooperative. Well appearing and in no apparent painful distress MSK Hands * Right Hand: Able to make a fist. No swelling or tenderness to palpation of these joints. * Left Hand: Able to make a fist. No swelling or tenderness to palpation of these joints. * Herbedens nodes noted bilaterally Wrists * Right Wrist: Full ROM. 70 degrees of wrist flexion, 80 degrees of wrist extension. No swelling or TTP * Left Wrist: Full ROM. 70 degrees of wrist flexion, 80 degrees of wrist exte nsion. No swelling or TTP Elbows * Right Elbow: Full ROM. No swelling or TTP. No TTP of the medial and lateral epicondyles * Left Elbow: Full ROM. No swelling or TTP. No TTP of the medial and lateral epicondyles Shoulders * Right shoulder: Full ROM. No swelling noted. No TTP of the AC joint, subacromial bursa or posterior shoulder * Left shoulder: Full ROM. No swelling noted. No TTP of the AC joint, subacromial bursa or posterior shoulder Hip bursa: No tenderness to palpation bilaterally Knees * Right knee: Full ROM. No swelling noted. No TTP of the knee joint lie or pes anserine bursa * Left knee: Full ROM. No swelling noted. No TTP of the knee joint lie or pes anserine bursa. * Crepitations felt bilaterally Ankles * Right ankle: Good ankle dorsiflexion and plantar flexion. No swelling. No TTP of the ankle joint * Left ankle: Good ankle dorsiflexion and plantar flexion. No swelling. No TTP of the ankle joint Feet * Right foot: Negative squeeze test * Left foot: Negative squeeze test Tender points? * No tenderness to palpation of the bilateral trapezius, supraspinatus, anterior costochondral junctions, bilateral suboccipital muscle insertions SKIN No rashes Vital Signs: Last Vital Signs Pulse 83 10/13/24 12:32 BP 110/62 10/13/24 12:32 Pulse Ox 97 10/13/24 12:32 Oxygen Delivery Method Room Air 10/13/24 12:32 BMI result Body Mass Index 23.6 Results Reviewed Results Reviewed: Laboratory Tests 11/16/23 10/02/24 17:14 16:48 WBC 4.4 L RBC 4.90 Hgb 14.7 Hct 43.6 Plt Count 289 ESR 12 Sodium 137 Potassium 3.5 Chloride 99 Carbon Dioxide 27 BUN 16 Creatinine 0.68 AST 27 ALT 37 C-Reactive Protein 0.15 0.96 H Assessment & Plan Assessment & Plan (1) Psoriatic arthritis: Comment: Methotrexate: 2011-present effective Code(s): L40.50 - Arthropathic psoriasis, unspecified Category: Medical Plan: #PsA Patient is a 59 y.o. male with PsO complicated by PsA here today for follow up While his CRP is mildly elevated there is no clinical evidence of active PsA disease. Patient also reports that he is doing well We will continue to monitor but no changes to the medication are warranted at this time Plan - Methotrexate 7.5mg PO every week - Folic acid 1mg daily - RTC 6 months - Labs before visit: CBC, CMP, ESR, CRP (2) Osteoporosis with fracture: Comment: Prior fracture history vertebral fracture. DEXA report [facility] 01/02/2022 AP spine T-score -2.8 osteoporosis Femoral neck left T-score -3.0 osteoporosis Total hip left T-score -2.1 osteopenia Code(s): M80.80XA - Other osteoporosis with current pathological fracture, unspecified site, initial encounter for fracture Category: Medical Qualifiers: Osteoporosis type: other Site of pathological fracture: vertebra Encounter type: subsequent encounter Fracture healing: with routine healing Qualified Code(s): M80.88XD - Other osteoporosis with current pathological fracture, vertebra(e), subsequent encounter for fracture with routine healing Plan: #Osteoporosis Patient with DEXA from 12/2021 showing osteoporosis Currently following endocrinology (3) care home methotrexate user: Code(s): Z79.899 - Other fdc (current) drug therapy Category: Medical Plan: #Long-term Current Use of Methotrexate Discussed with patient the benefits and risks of methotrexate for managing their rheumatic condition Benefits include reduced pain, reduced mortality, maintenance of remission and reduction of flares Risks include oral ulcers, photosensitivity, hepatotoxicity, hematologic toxicity, pneumonitis, flu-like symptoms (especially day after administration), nodulosis, lymphomas ? Limit alcohol and avoid Bactrim ? Monitoring: CBC, BMP, LFTs every 3-4 months and hepatitis serologies as needed Plan I spent 30 minutes reviewing the record and labs, taking a history, examining the patient, discussing the treatment plan, ordering diagnostic work up and documenting in the medical record Coding Level of Care Code Est Pt Level 4 (45079) Complex EM visit Add On G2211 Diagnoses Psoriatic arthritis L40.50 Pathological fracture of vertebra due to other osteoporosis with routine healing, subsequent encounter M80.88XD Osteoporosis type: other Site of pathological fracture: vertebra Encounter type: subsequent encounter Fracture healing: with routine healing terminal manager methotrexate user Z79.899
== END 2024-10-13 12:58 | disposition home or self-care (01) ==
LOC: HO.RHE 12:18
PROVIDERS: PCP Nurse Practitioner Family; Visit Provider Student in an Organized Health Care Education/Training Program
DX: L40.50 Arthropathic psoriasis, unspecified (principal); M80.88XD Other osteoporosis with current pathological fracture, vertebra(e), subsequent encounter for fracture with routine healing; Z79.899 Other long term (current) drug therapy
CPT/HCPCS: 99214